=== PATIENT | female | born 1965 | race Caucasian/White ===

== ENCOUNTER → 2021-10-12 | Outpatient (CLI) | payer BC, OTHER ==
[~2021-10-12] MED LIST: IOHEXOL 300 MG/ML 75 ML VIAL. IV ONE
--- NOTE | 2021-10-12 11:58 | RAD ---
EXAM: Chest CT with intravenous contrast. HISTORY: Pulmonary nodule on chest radiograph. TECHNIQUE: Computed tomographic images of the chest were obtained following the administration of int ravenous contrast. Multiplanar reformatting was performed. *One or more of the following individualized dose reduction techniques were utilized for this examina tion: 1. Automated exposure control. 2. Adjustment of the mA and/or kV according to patient size. 3. Use of iterative reconstruction technique. COMPARISON: Chest radiograph dated 10/08/2021. FINDINGS: There is an 1.2 cm partially calcified nodule within the medial right lower lobe, consisten t with a granuloma. There are several adjacent clustered nodules measuring 2 mm to 5 mm. No additiona l nodule is seen. There is no infiltrate or pleural effusion. The heart is normal in size. The aorta is normal in caliber. The left vertebral artery originates directly from the aortic arch, a normal ao rtic arch branching variant. There are calcified granulomas within the right hilar and subcarinal reg ions. There are small hypodense lesions within the left hepatic lobe measuring up to 8 mm. There is n o acute finding involving the upper abdomen. There is no acute or suspicious osseous finding. IMPRESSION: 1. No suspicious left upper lobe pulmonary nodule. 2. Partially calcified nodule measuring 1.2 cm within the medial right lower lobe, the appearance of which favors a granuloma. There are surrounding clustered nodules measuring up to 5 mm. Follow-up in 6 months is recommended to confirm stability. 3. No acute pulmonary finding. 4. Small hypodense lesions within the left hepatic lobe. In the absence of known malignancy, these ar e likely cysts. Liver sonography may be useful to confirm benignity. Electronically signed by: Heydi Barnett MD (10/12/2021 11:56 AM) [id number]
== END ==
LOC: CT 11:00
PROVIDERS: ATTEND Obstetrics & Gynecology
DX: R91.8 Other nonspecific abnormal finding of lung field (principal); K76.89 Other specified diseases of liver; J84.10 Pulmonary fibrosis, unspecified
CPT/HCPCS: 71260; Q9967

== ENCOUNTER 2022-01-29 14:11 | Emergency (ER) | payer BC, OTHER ==
[~2022-01-29] VITALS: Ht 172.7 cm; Wt 104.0 kg
--- NOTE | 2022-01-29 14:27 | EKG ---
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
--- NOTE | 2022-01-29 14:41 | PHYS DOC ---
Past History Past Surgical History: , Hysterectomy General Adult EDM: Chief Complaint: CHEST PAIN HPI: HPI: 56-year-old female presents with chest pain. She started to have chest pain today before yesterday. It seemed to come out of nowhere. She describes it as a central pressure. She can the emergency room today because she was attempting to vacuum which is an abnormal activity and she got short of breath and tires very easily. When she sat down to rest she became very sweaty. This has gone away but she continues to have the chest discomfort which is about a 5 out of 10. She has no history of pulmonary or cardiac problems. Her only medication is Synthroid. She recently had her TSH checked and is within the desired range. No measured fever at home. Review of Systems: Review of Systems: Constitutional: Denies fever or chills Eyes: Denies change in visual acuity HENT: Denies nasal congestion or sore throat Respiratory: shortness of breath Cardiovascular: Chest pain GI: Denies abdominal pain, nausea, vomiting, bloody stools or diarrhea : Denies dysuria Musculoskeletal: Denies back pain or joint pain Integument: Denies rash Neurologic: Denies headache, focal weakness or sensory changes Endocrine: Denies polyuria or polydipsia Lymphatic: Denies swollen glands Psychiatric: Denies depression or anxiety Current Medications: Current Meds: Current Medications Medications (Trade) Dose Ordered Sig/Tiffanie Start Time Stop Time Status Last Admin Dose Admin Aspirin (Aspirin Chewable) 324 mg 1X ONCE 01/29/22 14:45 01/29/22 14:46 UNV Allergies: Allergies: Allergies Coded Allergies Type Severity Reaction Last Updated Verified No Known Drug Allergies 10/12/21 No Physical Exam: PE: Constitutional: Well developed, well nourished, obese, no acute distress, non- toxic appearance. [] HENT: Normocephalic, atraumatic, bilateral external ears normal, oropharynx moist, no oral exudates, nose normal. [] Eyes: PERRLA, EOMI, conjunctiva normal, no discharge. [] Neck: Normal range of motion, no tenderness, supple, no stridor. [] Cardiovascular: Heart rate 69, regular rhythm, no murmur [] Lungs & Thorax: Bilateral breath sounds clear to auscultation [] Abdomen: Bowel sounds normal, soft, no tenderness, no masses, no pulsatile masses. [] Skin: Warm, dry, no erythema, no rash. [] Back: No tenderness, no CVA tenderness. [] Extremities: No tenderness, no cyanosis, no clubbing, ROM intact, no edema. [] Neurologic: Alert and oriented X 3, normal motor function, normal sensory function, no focal deficits noted. [] Psychologic: Affect normal, judgement normal, mood anxious. [] Current Patient Data: Vital Signs: Vital Signs Date Time Temp Pulse Resp B/P (MAP) Pulse Ox O2 Delivery O2 Flow Rate FiO2 01/29/22 14:17 98.2 67 18 172/96 (121) 97 Room Air EKG: EKG: Sinus rhythm, rate 69, axis, no ST elevation or depression. [] Radiology/Procedures: Radiology/Procedures: [] Impressions: AP chest. HISTORY: Chest pain AP view was taken of the chest. Lungs are clear. Heart is normal in size. There is no effusion. IMPRESSION: 1. No acute chest disease. Electronically signed by: Anthony Sanchez MD (01/29/2022 3:08 PM) [id number] DICTATED AND SIGNED BY: ANTHONY SANCHEZ MD DATE: 01/29/22 1508 CC: KYRA RICHARDS DO; LALI RYDER ~ Heart Score: C/O Chest Pain: Yes HEART Score for Chest Pain: HEART Score for Chest Pain Response (Comments) Value History Slighlty/Non-Suspicious 0 ECG Normal 0 Age >45 - < 65 1 Risk Factors 1 or 2 Risk Factors 1 Troponin < Normal Limit 0 Total 2 Risk Factors: Risk Factors: DM, Current or recent (<one month) smoker, HTN, HLP, family history of CAD, obesity. Risk Scores: Score 0 - 3: 2.5% MACE over next 6 weeks - Discharge Home Score 4 - 6: 20.3% MACE over next 6 weeks - Admit for Clinical Observation Score 7 - 10: 72.7% MACE over next 6 weeks - Early Invasive Strategies Course & Med Decision Making: Course & Med Decision Making Pertinent Labs and Imaging studies reviewed. (See chart for details) The patient's EKG is unremarkable. Her labs are unremarkable. Troponin is negative. Her chest x-ray is negative for acute findings. Not sure what is causing the patient discomfort. It could be GERD or musculoskeletal. He does not appear to be cardiopulmonary at this time. Her blood pressure is high at 16 5/100. Follow-up on this with her primary physician as she may need to be on blood pressure medicine. I have given her a single dose of clonidine in the ED which improved the blood pressure. She is stable for discharge at this time [] Christiano Disclaimer: Christiano Disclaimer: This electronic medical record was generated, in whole or in part, using a voice recognition dictation system. Departure Departure: Impression: Primary Impression: Chest pain Additional Impression: Hypertension Disposition: HOME / SELF CARE / HOMELESS Condition: STABLE Referrals: LALI RYDER (PCP) Patient Instructions: Chest Pain (Nonspecific), [id number], Hypertension, [id number] KYRA RICHARDS DO Jan 29, 2022 14:41
[2022-01-29 14:44] LABS: BASO # 0.1 x10^3/uL (0.0-0.2); BASO % 2 % (0-3); EOS # 0.2 x10^3/uL (0.0-0.7); EOS % 3 % (0-3); HEMATOCRIT 41.6 % (36.0-47.0); HEMOGLOBIN 13.6 g/dL (12.0-15.5); LYMPH # 1.8 x10^3/uL (1.0-4.8); LYMPH % 30 % (24-48); MEAN CORPUSCULAR HEMOGLOBIN 29 pg (25-35); MEAN CORPUSCULAR HGB CONC 33 g/dL (31-37); MEAN CORPUSCULAR VOLUME 89 fL (79-100); MONO # 0.6 x10^3/uL (0.0-1.1); MONO % 9 % (0-9); NEUT # 3.4 x10^3uL (1.8-7.7); NEUT % 56 % (31-73); PLATELET COUNT 279 x10^3/uL (140-400); RED BLOOD COUNT 4.67 x10^6/uL (3.50-5.40); RED CELL DISTRIBUTION WIDTH 16.2 % (11.5-14.5); WHITE BLOOD COUNT 6.2 x10^3/uL (4.0-11.0)
[2022-01-29] MEDS ORDERED: ASPIRIN CHEWABLE 81 MG TABLET. PO ONE (14:45)
[2022-01-29 14:54] LABS: CALCIUM 9.8 mg/dL (8.5-10.1); CREATININE 0.7 mg/dL (0.6-1.0); GFR 86.9; POTASSIUM 4.2 mmol/L (3.5-5.1)
[2022-01-29 15:02] LABS: ALBUMIN 3.8 g/dL (3.4-5.0); ALBUMIN/GLOBULIN RATIO 1.1 (1.0-1.7); TOTAL BILIRUBIN 0.4 mg/dL (0.2-1.0); TOTAL PROTEIN 7.4 g/dL (6.4-8.2)
--- NOTE | 2022-01-29 15:10 | RAD ---
AP chest. HISTORY: Chest pain AP view was taken of the chest. Lungs are clear. Heart is normal in size. There is no effusion. IMPRESSION: 1. No acute chest disease. Electronically signed by: Anthony Prince MD (01/29/2022 3:08 PM) [id number]
[2022-01-29] MEDS ORDERED: cloNIDine HCL 0.1 MG TABLET PO ONE (16:00)
[2022-01-29 16:02] VITALS: BP 165/100
== END 2022-01-29 16:05 | disposition home or self-care (01) ==
LOC: ER 14:11
DX: I10 Essential (primary) hypertension (principal); R07.89 Other chest pain; R06.02 Shortness of breath
CPT/HCPCS: 36415; 71045; 80053; 84484; 85025; 93005; 99285